=== PATIENT | female | born 1995 | race Caucasian/White ===

== ENCOUNTER 2017-12-05 16:53 | Inpatient (IN) | payer OTHER, BC ==
[~2017-12-05] VITALS: Ht 157.5 cm; Wt 104.5 kg
[2017-12-08] VITALS (9 sets, daily range): BP systolic 125–145; BP diastolic 71–95; PULSE 58–81; TEMP 98.2
[2017-12-08 20:27] LABS: BASO % 0.3 % (0.0-2.0); EOS % 0.3 % (0-4.0); GRAN # 8.1 (1.4-6.5); GRAN % 73.2 % (42.2-75.2); HEMOGLOBIN 12.8 g/dl (12.5-16.0); LYMPH # 1.9 (1.2-3.4); LYMPH % 16.9 % (20.0-51.0); MEAN CELL VOLUME 87 fl (80.0-100.0); MEAN CORPUSCULAR HEMOGLOBIN 29 pg (27.0-31.0); MEAN CORPUSCULAR HGB CONC 34 g/dl (33.0-37.0); MEAN PLATELET VOLUME 12.7 fl (7.4-10.4); MONO # 0.9 (0.1-0.6); MONO % 8.3 % (1.7-9.3); PLATELET COUNT 190 K/mm3 (130-400); RED BLOOD COUNT 4.39 M/mm3 (4.10-5.30); REDCELL DISTRIBUTION WIDTH-CV 14.8 % (11.5-14.5)
[2017-12-08] MEDS ORDERED: PRENATAL1 TA7 PO (20:30)
[2017-12-09] VITALS (48 sets, daily range): BP systolic 116–173; BP diastolic 60–103; PULSE 69–155; TEMP 98–98.9
[2017-12-10 00:35] VITALS: BP 117/69; PULSE 96; TEMP 98.7
[2017-12-10 04:30] VITALS: BP 116/72; PULSE 78
[2017-12-10 08:55] VITALS: BP 116/55; PULSE 106; TEMP 97.8
[2017-12-10 16:35] VITALS: BP 130/77; PULSE 93; TEMP 97.9
[2017-12-10 20:40] VITALS: BP 126/74; PULSE 90; TEMP 98.2
[2017-12-11 07:10] VITALS: BP 150/86; PULSE 100; TEMP 98.2
[2017-12-11] MEDS ORDERED: IBU800 M1 PO (08:28)
== END 2017-12-11 11:15 | disposition home or self-care (01) | DRG 775 ==
LOC: LDR 12-08 06:52 → OB 12-09 17:14
PROVIDERS: Obstetrics & Gynecology
PROC: 10D07Z6 Extraction of Products of Conception, Vacuum, Via Natural or Artificial Opening (ICD-10-PCS; principal; 2017-12-09)
DX: O76 Abnormality in fetal heart rate and rhythm complicating labor and delivery (principal); O69.1XX0 Labor and delivery complicated by cord around neck, with compression, not applicable or unspecified; Z3A.39 39 weeks gestation of pregnancy; Z37.0 Single live birth
CPT/HCPCS: J2590; J2795; J7120